=== PATIENT | male | born 2000 | race Two or more races ===

== ENCOUNTER 2020-08-31 16:59 | Emergency (ER) | payer MEDICAID ==
[~2020-08-31] VITALS: Ht 177.8 cm; Wt 72.6 kg
[2020-08-31 17:00] VITALS: BP 107/60
== END 2020-08-31 17:20 | disposition left against medical advice (07) ==
LOC: EDUNIT# 16:59 → EDBD 16:59 → ER 17:03
DX: F19.10 Other psychoactive substance abuse, uncomplicated (principal); J45.909 Unspecified asthma, uncomplicated; F90.9 Attention-deficit hyperactivity disorder, unspecified type; F17.210 Nicotine dependence, cigarettes, uncomplicated; Z90.89 Acquired absence of other organs